=== PATIENT | female | born 1990 | race Asian ===

== ENCOUNTER 2022-02-17 19:36 | Emergency (ER) | payer OTHER ==
[~2022-02-17] VITALS: Ht 170.2 cm; Wt 188.2 kg
[2022-02-17 21:06] VITALS: BP 141/88; TEMP 98.2
== END 2022-02-17 21:06 | disposition home or self-care (01) ==
LOC: ED 19:36
DX: I42.8 Other cardiomyopathies (principal); Z76.0 Encounter for issue of repeat prescription
CPT/HCPCS: 96374; 96376; 99284; J1940